=== PATIENT | female | born 1995 | race Caucasian/White ===

== ENCOUNTER 2019-11-19 17:36 | Emergency (ER) | payer SELFPAY ==
[2019-11-19 18:04] VITALS: BP 123/78
--- NOTE | 2019-11-19 18:16 | UC ---
Skin Complaint HPI - HPI Summary HPI Summary: 24-year-old female with history of diabetes presents for red, tender, swollen area to her right axilla that has progressively increased in size over the past 3 days. States area is warm to touch. No known history of MRSA. Denies any fever or chills. - History of Current Complaint Chief Complaint: UCSkin Time Seen by Provider: 11/19/19 18:05 Stated Complaint: LUMP UNDER RT ARM Hx Obtained From: Patient Hx Last Menstrual Period: 11/08/19 Pain Intensity: 6 - Allergy/Home Medications Allergies/Adverse Reactions: Allergies Allergy/AdvReac Type Severity Reaction Status Date / Time No Known Allergies Allergy Verified 11/19/19 17:51 Home Medications: Home Medications Insulin Glargine,Hum.rec.anlog [Rojasaglcarmita Wagoner] 15 unit SC DAILY 11/19/19 [ History Confirmed 11/19/19] PMH/Surg Hx/FS Hx/Imm Hx Endocrine History: Diabetes - Surgical History Surgical History: None - Family History Known Family History: Positive: Non-Contributory - Social History Lives: With Family Alcohol Use: Occasionally Substance Use Type: None Smoking Status (MU): Never Smoked Tobacco Review of Systems All Other Systems Reviewed And Are Negative: Yes Constitutional: Negative: Fever, Chills Skin: Positive: Other - See HPi Respiratory: Positive: Negative Cardiovascular: Positive: Negative Gastrointestinal: Positive: Negative Genitourinary: Positive: Negative Musculoskeletal: Positive: Negative Neurological: Positive: Negative Is Patient Immunocompromised?: No Physical Exam - Summary Physical Exam Summary: GENERAL APPEARANCE: Alert and cooperative obese adult female who appears to be in no acute distress. CARDIAC: Normal S1 and S2. No S3, S4 or murmurs. Rhythm is regular. There is no peripheral edema, cyanosis or pallor. Extremities are warm and well perfused. Capillary refill is less than 2 seconds. Peripheral pulses intact. LUNGS: Clear to auscultation without rales, rhonchi, wheezing or diminished breath sounds. ABDOMEN: Positive bowel sounds. Soft, nondistended, nontender. No guarding or rebound. No masses or hepatosplenomegally. MUSKULOSKELETAL: ROM intact to all extremities. No joint erythema or tenderness. Normal muscular development. Normal gait. SKIN: Skin normal color, texture and turgor. 3 cm x 2.5 cm area of induration with central fluctuance. Surrounding tissues with erythema and increased warmth. Triage Information Reviewed: Yes Vital Signs: Initial Vital Signs Temp 99 F 11/19/19 17:54 Pulse 86 11/19/19 17:54 Resp 18 11/19/19 17:54 BP 123/78 11/19/19 17:54 Pulse Ox 100 11/19/19 17:54 Vital Signs Reviewed: Yes Procedures - Procedure Summary Procedure Summary: PROCEDURE NOTE: Incision and drainage of abscess to right axilla PROCEDURE: Informed consent was obtained and timeout protocol was performed prior to initiating the procedure. The skin was prepped with Betadine and the area draped in the usual manner. The site was anesthetized with 1.5 ml of 1% lidocaine with epinephrine. A 1 cm linear incision was made and the purulent material expressed. A wound culture was obtained and sent. The abscess was explored thoroughly and sequestered pockets were opened. The wound was packed with 1/4 inch plain packing gauze. A bulky gauze dressing was then placed. Bleeding was minimal. The patient tolerated the procedure well without complications. Standard post- procedure care is explained and return precautions were given. Course/Dx - Course Course Of Treatment: 24-year-old female with history of diabetes presents for red, tender, swollen area to her right axilla that has progressively increased in size over the past 3 days. States area is warm to touch. No known history of MRSA. Denies any fever or chills. Afebrile. Vital signs stable. Patient had a 3 cm x 2.5 cm area of induration with central fluctuance and the surrounding tissues were erythematous with increased warmth consistent with an abscess with cellulitis. An I&D was performed and a small to moderate amount of purulent drainage was expressed from the wound. A wound culture was taken and is pending. After breaking up any loculations the wound was then packed with plain packing gauze and a bulky dressing was applied. With the patient's history of being an insulin-dependent diabetic will place her on a course of Bactrim DS twice a day 5 days. Wound care was discussed with the patient. She is to return here in 3 days for a wound check and to have the packing removed. Anticipatory guidance and warning symptoms were reviewed with the patient. Verbalizes understanding and agrees with plan of care. - Differential Diagnoses - Skin Complaint Differential Diagnoses: Abscess, Cellulitis, MRSA - Diagnoses Provider Diagnosis: Abscess of right axilla Discharge ED - Sign-Out/Discharge Documenting (check all that apply): Patient Departure All imaging exams completed and their final reports reviewed: No Studies - Discharge Plan Condition: Stable Disposition: HOME Prescriptions: Sulfamethox/Trimethoprim DS* [Bactrim DS 800/160 TAB*] 1 tab PO BID 5 Days #10 tab Patient Education Materials: Abscess (ED) Referrals: No Primary Care Phys,NOPCP [Primary Care Provider] - Additional Instructions: You had a skin abscess that was opened and drained today in the clinic. A wound culture was taken to see what bacteria grows out and to ensure that the antibiotic you were placed on will be effective in treating the infection. It can take up to 72 hours to get these results. Start Bactrim DS 1 tab twice a day for 5 days. Leave the dressing that was applied in the clinic in place for the next 24 hours. Be sure to keep it clean and dry. After 24 hours, you may remove the dressing and shower as normal. Keep the wound covered with a bandage especially if there is drainage. This should be changed at least twice a day or any time the dressing becomes wet or soiled. Packing was placed in the wound today to allow the wound to continue to drain. Do not remove the packing. If it accidentally falls out, do not try to replace it. Simply leave the wound open to drain. Use acetaminophen (Tylenol) or ibuprofen (Advil, Motrin) according to directions as needed for pain. Return here in 3 days for a wound check and to have the packing removed. The provider that sees you at that time may recommend repacking the wound if there is still a lot of drainage. Watch for signs of infection including fever greater than 100.5 F, severe pain not managed with pain medication, redness that spreads, swelling of the hand/ fingers, or pus draining from the wound. Seek immediate medical attention should any of these occur. - Billing Disposition and Condition Condition: STABLE Disposition: Home
[2019-11-19] MEDS ORDERED: Lidocaine 2% w EPI 1:100,000* 20 ML MDV VIAL INJ ONE (18:22)
[2019-11-19] MEDS ORDERED: Naproxen TAB* 250 MG PO ONE (18:47)
== END 2019-11-19 19:00 | disposition home or self-care (01) ==
LOC: UCCORT 17:36
DX: L02.411 Cutaneous abscess of right axilla (principal); E11.9 Type 2 diabetes mellitus without complications; Z79.4 Long term (current) use of insulin
CPT/HCPCS: 10060; 87070; 87077; 87186; 87205; 87640; 87641; 99202; A9270-GY; G0463

== ENCOUNTER 2019-11-22 17:48 | Emergency (ER) | payer SELFPAY ==
[2019-11-22 18:12] VITALS: BP 146/87
--- NOTE | 2019-11-22 18:17 | UC ---
HPI Wound/Suture Re-check - HPI Summary HPI Summary: Patient is a 24yo female presenting with recheck of abscess beneath R axilla that was drained and packed here on 11/19. She is presenting to have packing removed. States wound is "still draining mostly blood" but "much better." States redness and warmth have improved. Notes tender to touch and that packing is uncomfortable. Still taking bactrim as prescribed. Denies fever and chills. Denies n/v. Wound culture was s. aureus positive, MRSA negative. - History Of Current Complaint Chief Complaint: UCSkin Stated Complaint: WOUND CHECK TO ARMPIT Hx Obtained From: Patient Hx Last Menstrual Period: 11/08/19 Severity: Mild Pain Intensity: 4 Pain Scale Used: 0-10 Numeric - Allergies/Home Medications Allergies/Adverse Reactions: Allergies Allergy/AdvReac Type Severity Reaction Status Date / Time No Known Allergies Allergy Verified 11/22/19 18:05 Home Medications: Home Medications Acetaminophen TAB* [Tylenol TAB*] 650 mg PO Q4H PRN 11/22/19 [History Confirmed 11/22/19] PMH/Surg Hx/FS Hx/Imm Hx Endocrine History: Diabetes - Surgical History Surgical History: None - Family History Known Family History: Positive: Non-Contributory - Social History Alcohol Use: Occasionally Substance Use Type: None Smoking Status (MU): Never Smoked Tobacco Review of Systems All Other Systems Reviewed And Are Negative: Yes Constitutional: Positive: Negative. Negative: Fever, Chills Skin: Positive: Other - recheck of abscess or R axilla Respiratory: Positive: Negative Cardiovascular: Positive: Negative Gastrointestinal: Positive: Negative. Negative: Vomiting, Nausea Musculoskeletal: Positive: Negative Neurological: Positive: Negative Physical Exam Triage Information Reviewed: Yes Appearance: Well-Appearing, No Pain Distress, Well-Nourished Vital Signs: Initial Vital Signs Temp 97.9 F 11/22/19 18:06 Pulse 94 11/22/19 18:06 Resp 17 11/22/19 18:06 BP 146/87 11/22/19 18:06 Pulse Ox 98 11/22/19 18:06 Vital Signs Reviewed: Yes Eyes: Positive: Conjunctiva Clear ENT: Positive: Hearing grossly normal Neck: Positive: Supple Respiratory: Positive: No respiratory distress Neurological: Positive: Alert Psychological: Positive: Age Appropriate Behavior Skin: Positive: Other - ~1cm incision with packing present noted of R upper axilla. small amount of bleeding and purulent drainage noted. tender to palpation. no surrounding erythema. Course/Dx - Course Course Of Treatment: I removed the packing from the abscess of right axilla. Small amount of bleeding and purulent drainage still present. I recommended repacking the wound , but patient declined, stating "it's too uncomfortable with the packing in." She received wound dressing and education on continued wound care. Instructed to continue with course of Bactrim and to change dressings as needed. Educated on signs and symptoms of worsening skin infection and to go to the emergency room if any red flags occur. Patient is visiting from [place] and is returning later this week and agreed to follow up with her primary care provider or food and nutrition supervisor for reevaluation of the wound. Patient voiced understanding and agreed with the treatment plan. - Diagnosis Provider Diagnosis: Abscess of right axilla Discharge ED - Sign-Out/Discharge Documenting (check all that apply): Patient Departure All imaging exams completed and their final reports reviewed: No Studies - Discharge Plan Condition: Stable Disposition: HOME Patient Education Materials: Abscess (ED) Referrals: No Primary Care Phys,NOPCP [Primary Care Provider] - Additional Instructions: You had packing removed from your abscess today. Continue to change the dressings as needed. Finish your antibiotic as prescribed. Keep the area as clean and dry as possible. You may continue with ibuprofen for pain relief. Follow up with your primary care provider for reevaluation of the abscess. Go to the emergency room if you experience redness and warmth of the area again , fevers, nausea and vomiting, increasing pus draining from the wound, or severe pain. - Billing Disposition and Condition Condition: STABLE Disposition: Home - Attestation Statements Provider Attestation: I was available for consult. This patient was seen by the SHANNON. The patient was not presented to , seen by or examined by ma -Shirley Jackson MD
== END 2019-11-22 18:46 | disposition home or self-care (01) ==
LOC: UCCORT 17:48
DX: L02.411 Cutaneous abscess of right axilla (principal); E11.9 Type 2 diabetes mellitus without complications
CPT/HCPCS: 99211; G0463